=== PATIENT | female | born 1970 | race Caucasian/White ===

== ENCOUNTER 2017-10-08 20:26 | Observation (INO) | payer OTHER ==
[2017-10-08] MEDS ORDERED: Sodium Chloride 0.9% 1000 ML 1,000 ML IV STA (20:46)
[2017-10-08] MEDS ORDERED: Adacel Vial IM ONE ×2 (20:49→20:55)
[2017-10-08] MEDS ORDERED: TYLENOL 325 MG ONE (20:55)
[2017-10-08] MEDS ORDERED: Sodium Chloride 0.9% 1000 ML 1,000 ML ONE (20:55)
--- NOTE | 2017-10-08 20:57 | ERPHSYRPT ---
- History of Present Illness Time Seen by Provider: 10/08/17 20:39 Source: patient, EMS Exam Limitations: no limitations Patient Subjective Stated Complaint: Pt arrives to ER via EMS from scene of son' s house stating had 6 seizures in 6 minutes lasting approx 15 seconds with 30 seconds in between with periods of A&Ox4 responsiveness in between seizures. pt has hx of seizures for which she takes Keppra, was stopped 3 months ago and restarted 1 month ago. pt also takes Xanax for anxiety. during assessment pt states "I have a taste of copper in my mouth. it means I'm getting ready to have a seizure." After a few moments pt begins to rhythmically shake body for about 10 seconds yet has positive corneal reflex response when eye is irrigated with saline flush during seizure. pt immediately stopped shaking after corneal reflex test and immediately states "that tastes bad. Can I have some water?" Pt then proceeds to randomly twitch muscles in body and remains A&Ox4 and in no distress at this time. This shaking that pt states was a seizure does not appear to be a genuine seizure to this RN. Pt son is a police communications dispatcher who states he believes his mother is just wanting attention. pt tearfully mentions she is in witness protection program for being a field witness of a murder and was moved here from [place] for her protection. States has had seizures for 9- 10 months and recently diagnosed with MS, prescribed Baclofen from Neurologist in [place]. Pt mentions hitting her right knee and left lower leg during seizure at home. States became sick and vomited after seizure at home. Triage Nursing Assessment: see above Physician History: Pt states, she was diagnosed with MS last year, followed by a Neurologist in [facility], and being treated with Baclofen. She was also diagnosed with seizures about 9 months ago, started on PO Keppra, which was suspended for a while, and it was restarted again about one month ago. She has not had a seizure for about 6 months. She is currently taking Keppra 1000mg BID, she took the last this morning. She apparently started having seizures around 18:30 PM, had 6 episodes, lasting few seconds each, and resolving, immediately, she became conscious inbetween attacks. She states, she sustained minor head injury and c/o right knee pain. She is currently alert and oriented x4, seizure free. Timing/Duration: hour(s) (2.5) Severity: mild Character of Deficits: none Deficits: no difficulties Baseline/Normal Cognition: alert oriented x 3 Current Cognition: alert oriented x 3 Baseline Gait: walks w/o assistance Associated Symptoms: headache, other (right knee pain) Allergies/Adverse Reactions: Iodinated Contrast- Oral and IV Dye Allergy (Verified 10/08/17 20:50) Rash morphine Allergy (Verified 10/08/17 20:50) Rash Penicillins Allergy (Verified 10/08/17 20:50) Rash lorazepam [From Ativan] Adverse Reaction (Verified 10/08/17 20:50) Rash Home Medications: Alprazolam 1 mg [Xanax 1 mg] 1 mg PO 10/08/17 [History] Folic Acid 1 mg PO 10/08/17 [History] Levetiracetam [Keppra] 1,000 mg PO BID 10/08/17 [History] Hx Tetanus, Diphtheria Vaccination/Date Given: No - Review of Systems Constitutional: No Symptoms Musculoskeletal: Other (right knee pain) Neurological: Headache, Seizure All Other Systems: Reviewed and Negative - Past Medical History Pertinent Past Medical History: Yes Neurological History: Epilepsy Other Medical History: MS - Past Surgical History Past Surgical History: Yes Gastrointestinal: Cholecystectomy Musculoskeletal: Orthopedic Surgery Female Surgical History: Tubal Ligation Other Surgical History: Bladder sling - Social History Smoking Status: Current every day smoker Exposure to second hand smoke: No Drug Use: marijuana Patient Lives Alone: No - Female History Hx Now: No - Nursing Vital Signs Nursing Vital Signs: Initial Vital Signs Temperature 98.8 F 10/08/17 20:29 Pulse Rate 97 H 10/08/17 20:29 Respiratory Rate 18 10/08/17 20:29 Blood Pressure 108/67 10/08/17 20:29 O2 Sat by Pulse Oximetry 98 10/08/17 20:29 Pain Scale Pain Intensity 6 - Burt Coma Scale Best Eye Response (Roshan): (4) open spontaneously Best Verbal Response (Burt): (5) oriented Best Motor Response (Burt): (6) obeys commands Roshan Total: 15 - Physical Exam General Appearance: no apparent distress Eye Exam: bilateral eye: PERRL, EOMI Ears, Nose, Throat Exam: normal ENT inspection, pharynx normal, moist mucous membranes Neck Exam: normal inspection, non-tender, supple, full range of motion, No carotid bruit, No JVD Respiratory: normal breath sounds, lungs clear, airway intact, No chest tenderness, No respiratory distress Cardiovascular: regular rate/rhythm, normal heart sounds, normal peripheral pulses, No murmur Gastrointestinal: soft, normal bowel sounds, No tenderness Back Exam: normal inspection, No CVA tenderness Extremity Exam: normal inspection, other (right knee: small abrasion on the lateral aspect, no swelling or deformity, good, painful ROM, good distal pulses and sensation, left lateral leg: superficial abrasion, no swelling, tenderness, or deformity.) Peripheral Pulses: dorsalis-pedis (R): 3+, dorsalis-pedis (L): 3+ Mental Status: alert, oriented x 3, cooperative corporate meeting planner Exam: normal speech, PERRL Coordination/Gait: normal gait, normal cerebellar function Motor/Sensory: no motor deficit DTR: knee (R): 2+, knee (L): 2+ Skin Exam: normal color, warm, dry, other (small hair follicular papules, "bumps " in right armpit, no abscess, or purulent discharge, no fluctuating mass.), No rash SpO2 Interpretation: normal SpO2: 98 Oxygen Delivery: Room Air - Course Nursing assessment & vital signs reviewed: Yes EKG Interpreted by Me: RATE (89/min), NORMAL AXIS, NORMAL INTERVALS, NORMAL ST-T - Radiology Exams Right Knee X-ray Interpretation: Interpreted by me, Negative - CT Exams Head CT Interpretation: Tele-radiologist Report, Other (7 mm old, left basal ganglia infarct, no new changes) Ordered Tests: Active Orders 24 hr Category Date Time Status High Tension Tester STAT Care 10/08/17 20:50 Active EKG-ER Only STAT Care 10/08/17 20:49 Active Seizure Precautions -SCCHED STAT Care 10/08/17 20:46 Active HEAD WITHOUT CONTRAST [CT] Stat Exams 10/08/17 20:48 Taken KNEE (1 OR 2 VIEW) Stat Exams 10/08/17 20:50 Taken CBC W DIFF Stat Lab 10/08/17 21:29 Completed CK-Creatinine Phosphokinase Stat Lab 10/08/17 21:29 Completed CMP Stat Lab 10/08/17 21:29 Completed ETHYL ALCOHOL Stat Lab 10/08/17 21:29 Completed HCG,QUALITATIVE URINE Stat Lab 10/08/17 20:47 Uncollected MAGNESIUM Stat Lab 10/08/17 21:29 Completed TROPONIN Q3H Lab 10/08/17 21:29 Completed TROPONIN Q3H Lab 10/09/17 00:00 Ordered TROPONIN Q3H Lab 10/09/17 03:00 Ordered TROPONIN Q3H Lab 10/09/17 06:00 Ordered TROPONIN Q3H Lab 10/09/17 09:00 Ordered UA W/RFX UR CULTURE Stat Lab 10/08/17 20:47 Uncollected Urine Triage Profile Stat Lab 10/08/17 20:47 Uncollected Medication Summary Discontinued Medications Generic Name Dose Route Start Last Admin Trade Name Freq PRN Reason Stop Dose Admin Acetaminophen Confirm 10/08/17 20:55 Tylenol 325 Mg Administered 10/08/17 20:56 Dose 650 mg .ROUTE .STK-MED ONE Acetaminophen 650 mg 10/08/17 21:07 10/08/17 21:10 Tylenol 325 Mg PO 10/08/17 21:08 650 mg STAT STA Administration Diphenhydramine HCl 25 mg 10/08/17 22:29 Benadryl 50 Mg/Ml IV 10/08/17 22:30 STAT ONE Diphtheria/Tetanus/Acell Pertussis 0.5 ml 10/08/17 20:49 10/08/17 21:09 Adacel Vial IM 10/08/17 20:50 0.5 ml .ONCE ONE Administration Diphtheria/Tetanus/Acell Pertussis Confirm 10/08/17 20:55 Adacel Vial Administered 10/08/17 20:56 Dose 0.5 ml IM .STK-MED ONE Sodium Chloride 1,000 mls @ 999 mls/hr 10/08/17 20:46 10/08/17 22:29 Sodium Chloride 0.9% 1000 Ml IV 10/08/17 21:46 Infused .Q1H1M STA Infusion Sodium Chloride Confirm 10/08/17 20:55 Sodium Chloride 0.9% 1000 Ml Administered 10/08/17 20:56 Dose 1,000 mls @ ud .ROUTE .STK-MED ONE Ketorolac Tromethamine 30 mg 10/08/17 22:29 Toradol 30 Mg Injection IV 10/08/17 22:30 STAT ONE Lorazepam 0.5 mg 10/08/17 22:29 Ativan 2 Mg/1 Ml Vial IV 10/08/17 22:30 NOW ONE Lab/Rad Data: Laboratory Result Diagrams 10/08/17 21:29 10/08/17 21:29 Laboratory Results 10/08/17 10/08/17 10/08/17 Range/Units 21:29 21:29 21:29 WBC (4.0-10.5) K/mm3 RBC (4.1-5.4) M/mm3 Hgb (12.0-16.0) gm/dl Hct (35-47) % MCV (78-100) fl MCH (26-32) pg MCHC (32-36) g/dl RDW (11.5-14.0) % Plt Count (150-450) K/mm3 MPV (6-9.5) fl Gran % (36.0-66.0) % Eos # (Auto) (0-0.5) Absolute Lymphs (auto) (1.0-4.6) Absolute Monos (auto) (0.0-1.3) Lymphocytes % (24.0-44.0) % Monocytes % (0.0-12.0) % Eosinophils % (0.00-5.0) % Basophils % (0.0-0.4) % Absolute Granulocytes (1.4-6.9) Basophils # (0-0.4) Sodium 146 H (137-145) mmol/L Potassium 3.6 (3.5-5.1) mmol/L Chloride 111 H (98-107) mmol/L Carbon Dioxide 24 (22-30) mmol/L Anion Gap 14.5 (5-15) MEQ/L BUN 9 (7-17) mg/dL Creatinine 0.50 L (0.52-1.04) mg/dL Estimated GFR > 60.0 ML/MIN Glucose 110 H (74-106) mg/dL Calcium 9.2 (8.4-10.2) mg/dL Magnesium 2.0 (1.6-2.3) mg/dL Total Bilirubin 0.30 (0.2-1.3) mg/dL AST 32 (14-36) U/L ALT 68 H (0-35) U/L Alkaline Phosphatase 91 (38-126) U/L Creatine Kinase 21 L (30-135) U/L Troponin I < 0.012 (0.000-0.034) ng/mL Serum Total Protein 7.2 (6.3-8.2) g/dL Albumin 4.0 (3.5-5.0) g/dL Ethyl Alcohol < 10 (0-10) mg/dL 10/08/17 Range/Units 21:29 WBC 11.5 H (4.0-10.5) K/mm3 RBC 4.22 (4.1-5.4) M/mm3 Hgb 12.5 (12.0-16.0) gm/dl Hct 38.3 (35-47) % MCV 90.8 (78-100) fl MCH 29.6 (26-32) pg MCHC 32.6 (32-36) g/dl RDW 15.5 H (11.5-14.0) % Plt Count 450 (150-450) K/mm3 MPV 9.5 (6-9.5) fl Gran % 63.1 (36.0-66.0) % Eos # (Auto) 0.17 (0-0.5) Absolute Lymphs (auto) 2.95 (1.0-4.6) Absolute Monos (auto) 1.08 (0.0-1.3) Lymphocytes % 25.6 (24.0-44.0) % Monocytes % 9.4 (0.0-12.0) % Eosinophils % 1.5 (0.00-5.0) % Basophils % 0.4 (0.0-0.4) % Absolute Granulocytes 7.29 H (1.4-6.9) Basophils # 0.05 (0-0.4) Sodium (137-145) mmol/L Potassium (3.5-5.1) mmol/L Chloride (98-107) mmol/L Carbon Dioxide (22-30) mmol/L Anion Gap (5-15) MEQ/L BUN (7-17) mg/dL Creatinine (0.52-1.04) mg/dL Estimated GFR ML/MIN Glucose (74-106) mg/dL Calcium (8.4-10.2) mg/dL Magnesium (1.6-2.3) mg/dL Total Bilirubin (0.2-1.3) mg/dL AST (14-36) U/L ALT (0-35) U/L Alkaline Phosphatase (38-126) U/L Creatine Kinase (30-135) U/L Troponin I (0.000-0.034) ng/mL Serum Total Protein (6.3-8.2) g/dL Albumin (3.5-5.0) g/dL Ethyl Alcohol (0-10) mg/dL - Progress Progress: improved Progress Note: 10/08/17 22:33 Pt had one episode of "seizure" witnessed by nurse, lasted only few seconds, she became alert and oriented swiftly, only nauseated and c/o gen. headaches. She was given iv Toradol, benadryl, and 0.5 mg Ativan iv, also 1000 mg PO Keppra. I called Dr Villanueva, discussed this case in details, he accepted her to be admitted for observation. Pt was informed, she agreed. 10/08/17 22:36 Pt was also advised to avoid driving cars and operated heavy machinery, do not climb heights and swim alone, until cleared by a neurologist! Discussed with : Kayleigh Will see patient in: hospital (observation) Counseled pt/family regarding: lab results, diagnosis, need for follow-up, rad results - Departure Time of Disposition: 22:37 Departure Disposition: Observation Clinical Impression: Seizures Condition: Stable Critical Care Time: No Instructions: Seizures, Adult (DC)
[2017-10-08] MEDS ORDERED: TYLENOL 325 MG PO STA (21:07)
[2017-10-08 21:31] LABS: BASOPHIL % 0.4 % (0.0-0.4); Basophil (Absolute #) 0.05 (0-0.4); Eosinophil % 1.5 % (0.00-5.0); Eosinophil (Absolute #) 0.17 (0-0.5); Granulocyte Absolute (ANC) 7.29 (1.4-6.9); Granulocytes % 63.1 % (36.0-66.0); Hematocrit 38.3 % (35-47); Hemoglobin 12.5 gm/dl (12.0-16.0); Lymphocyte (Absolute #) 2.95 (1.0-4.6); Lymphocytes % 25.6 % (24.0-44.0); Mean Cell Volume 90.8 fl (78-100); Mean Corpuscular Hemoglobin 29.6 pg (26-32); Mean Corpuscular Hgb Concent. 32.6 g/dl (32-36); Mean Platelet Volume 9.5 fl (6-9.5); Monocyte (Absolute #) 1.08 (0.0-1.3); Monocytes % 9.4 % (0.0-12.0); Platelet Count 450 K/mm3 (150-450); Red Blood Count 4.22 M/mm3 (4.1-5.4); Red Cell Distribution Width 15.5 % (11.5-14.0); White Blood Count 11.5 K/mm3 (4.0-10.5)
[2017-10-08 21:46] LABS: CK-Creatinine Phosphokinase 21 U/L (30-135)
[2017-10-08 21:48] LABS: ALKALINE PHOSPHATASE 91 U/L (38-126); ANION GAP 14.5 MEQ/L (5-15); BLOOD UREA NITROGEN 9 mg/dL (7-17); CHLORIDE 111 mmol/L (98-107); Calcium 9.2 mg/dL (8.4-10.2); Carbon Dioxide 24 mmol/L (22-30); Glucose 110 mg/dL (74-106); Potassium 3.6 mmol/L (3.5-5.1); SGOT/AST 32 U/L (14-36); SGPT/ALT 68 U/L (0-35); SODIUM 146 mmol/L (137-145); Total Protein 7.2 g/dL (6.3-8.2)
[2017-10-08 21:50] LABS: ETHYL ALCOHOL < 10 mg/dL (0-10)
[2017-10-08] MEDS ORDERED: BENADRYL 50 MG/ML IV ONE (22:29)
[2017-10-08] MEDS ORDERED: Ativan 2 MG/1 ML VIAL IV ONE (22:29)
[2017-10-08] MEDS ORDERED: TORAdol 30 mg Injection IV ONE (22:29)
[2017-10-08] MEDS ORDERED: Ativan 2 MG/1 ML VIAL ONE (22:34)
[2017-10-08] MEDS ORDERED: TORAdol 30 mg Injection ONE (22:34)
[2017-10-08] MEDS ORDERED: BENADRYL 50 MG/ML ONE (22:34)
[2017-10-08] MEDS ORDERED: KEPPRA 500 MG PO ONE (22:35)
[2017-10-08] MEDS ORDERED: Ativan 2 MG/1 ML VIAL IV PRN (22:39)
[2017-10-08] MEDS ORDERED: KEPPRA 500 MG ONE (22:39)
[2017-10-09] MEDS: Sodium Chloride 0.9% 1000 ML 1,000 ML IV SCH ×3 (00:44→23:21)
[2017-10-09 05:51] LABS: BASOPHIL % 0.6 % (0.0-0.4); Basophil (Absolute #) 0.04 (0-0.4); Eosinophil % 2.6 % (0.00-5.0); Eosinophil (Absolute #) 0.18 (0-0.5); Granulocyte Absolute (ANC) 3.72 (1.4-6.9); Granulocytes % 53.5 % (36.0-66.0); Hematocrit 36.7 % (35-47); Hemoglobin 11.9 gm/dl (12.0-16.0); Lymphocyte (Absolute #) 2.29 (1.0-4.6); Lymphocytes % 32.9 % (24.0-44.0); Mean Cell Volume 91.5 fl (78-100); Mean Corpuscular Hgb Concent. 32.4 g/dl (32-36); Mean Platelet Volume 9.7 fl (6-9.5); Monocyte (Absolute #) 0.72 (0.0-1.3); Monocytes % 10.4 % (0.0-12.0); Platelet Count 419 K/mm3 (150-450); Red Blood Count 4.01 M/mm3 (4.1-5.4); Red Cell Distribution Width 15.5 % (11.5-14.0)
[2017-10-09 05:59] LABS: Mean Corpuscular Hemoglobin 29.6 pg (26-32)
[2017-10-09 06:11] LABS: ANION GAP 10.3 MEQ/L (5-15); BLOOD UREA NITROGEN 9 mg/dL (7-17); CHLORIDE 114 mmol/L (98-107); Carbon Dioxide 22 mmol/L (22-30); Glucose 91 mg/dL (74-106); Potassium 3.7 mmol/L (3.5-5.1); SODIUM 143 mmol/L (137-145)
[2017-10-09] MEDS: VALIUM 10 MG/2 ML SYRINGE IV PRN ×3 (07:29→20:49)
[2017-10-09 07:40] LABS: Appearance CLOUDY (CLEAR); Bilirubin NEGATIVE (NEGATIVE); Glucose NEGATIVE (NEGATIVE); Ketones NEGATIVE (NEGATIVE); Leukocyte Esterase 2+ (NEGATIVE); Nitrite POSITIVE (NEGATIVE); Protein,Urine Dip TRACE (Negative); Specific Gravity 1.015 (1.005-1.025); Urobilinogen NORMAL mg/dL (0-1)
[2017-10-09 07:47] LABS: Bacteria PACKED /HPF (NEGATIVE); Epithelial Cells FEW /HPF (FEW); RBC 0-2 /HPF (0-2); WBC 15-25 /HPF (0-5)
[2017-10-09 08:06] LABS: Amphetamine,Urine NEGATIVE (NEGATIVE); Barbiturate,Urine NEGATIVE (NEGATIVE); Benzodiazepine,Urine POSITIVE (NEGATIVE); Cocaine,Urine NEGATIVE (NEGATIVE); Methadone,Urine NEGATIVE (NEGATIVE); Opiate,Urine NEGATIVE (NEGATIVE); PCP,Urine NEGATIVE (NEGATIVE); THC,Urine POSITIVE (NEGATIVE)
--- NOTE | 2017-10-09 09:25 | XRAY ---
Indication: Knee pain. Comparison: None 2 views of the right knee obtained. No bony, articular, or soft tissue abnormalities.
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
[2017-10-09] MEDS ORDERED: XANAX 1 MG PO PRN (10:22)
[2017-10-09] MEDS: FOLATE 1 MG PO SCH (10:32)
[2017-10-09] MEDS: KEPPRA 500 MG PO SCH ×2 (10:32→21:32)
[2017-10-09] MEDS: LIORESAL 10 MG PO SCH ×3 (10:32→21:32)
[2017-10-09] MEDS: OXYCODONE-ACETAMINOPHEN 10-325 PO PRN ×3 (10:33→22:35)
[2017-10-09] MEDS ORDERED: MEDICATION INTERVENTION PO SCH (10:45)
[2017-10-09] MEDS: Zofran 4 MG/2 ML VIAL IV PRN ×2 (13:02→20:51)
[2017-10-09] MEDS ORDERED: NON-FORMULARY ITEM (Baclofen [Baclofen] 20 MG) PO SCH (15:00)
[2017-10-09] MEDS: Nicoderm CQ 21 MG TOP SCH (18:33)
[2017-10-09] MEDS: KEFLEX 500 MG PO SCH (21:32)
[2017-10-09] MEDS ORDERED: RAMELTEON 8 MG PO SCH (22:00)
[2017-10-10] MEDS: OXYCODONE-ACETAMINOPHEN 10-325 PO PRN ×2 (08:00→14:29)
[2017-10-10] MEDS ORDERED: CORTISPORIN EAR DROPS Solution 1OML OT ONE (08:49)
[2017-10-10] MEDS: Nicoderm CQ 21 MG TOP SCH (09:24)
[2017-10-10] MEDS: LIORESAL 10 MG PO SCH ×2 (09:24→14:25)
[2017-10-10] MEDS: Sodium Chloride 0.9% 1000 ML 1,000 ML IV SCH (09:24)
[2017-10-10] MEDS: KEPPRA 500 MG PO SCH (09:24)
[2017-10-10] MEDS: KEFLEX 500 MG PO SCH (09:24)
[2017-10-10] MEDS: FOLATE 1 MG PO SCH (09:24)
[2017-10-10] MEDS: CORTISPORIN EAR DROPS Solution 1OML OT SCH ×2 (10:15→14:40)
[2017-10-10] MEDS ORDERED: XANAX 1 MG PO ONE (16:29)
[2017-10-10 17:05] VITALS: BP 116/82; PULSE 78; O2SAT 98
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
--- NOTE | 2017-10-13 15:29 | XRAY ---
Indication: Seizures. Multiple contiguous axial images obtained through the head without contrast. Comparison: None Small 7 mm left basal ganglia remote lacunar infarct. No acute intracranial hemorrhage, abnormal extra-axial fluid collection, or mass effect. Fourth ventricle is midline without hydrocephalus. Aguayo-white matter differentiation preserved. Bony calvarium intact. Visualized paranasal sinuses and mastoid air cells are clear. Impression: Left basal ganglia remote lacunar infarct. No acute intracranial abnormalities. CT DI 70.00
== END 2017-10-10 16:35 ==
LOC: ED 20:26 → MED SURG 23:16
PROVIDERS: ADMIT Family Medicine; ATTEND Family Medicine
DX: F44.5 Conversion disorder with seizures or convulsions (principal); R45.851 Suicidal ideations; F41.9 Anxiety disorder, unspecified; M54.89 Other dorsalgia; M54.9 Dorsalgia, unspecified; G89.29 Other chronic pain; F45.42 Pain disorder with related psychological factors; N30.00 Acute cystitis without hematuria; H60.90 Unspecified otitis externa, unspecified ear; G40.909 Epilepsy, unspecified, not intractable, without status epilepticus
CPT/HCPCS: 36415; 70450; 73560; 80048; 80053; 80177; 80307; 81000; 82550; 83735; 84484; 84703; 85025; 87077; 87086; 87186; 90791; 93005; 93041; 93268; 95957; 96360; 96374; 96375; 99285; G0378; 90471; 90715; J1200; J1885; J2060; J2405; Q3014; A9270-GY; G0480